=== PATIENT | female | born 1960 | race Hispanic/Latino ===

== ENCOUNTER 2018-05-09 22:22 | Inpatient (IN) | payer OTHER ==
[2018-05-09 22:59] LABS: #Basophils 0.2 thou/uL (0.0-0.2); #Eosinphils 0.2 thou/uL (0.0-0.7); #Lymphocytes 4.5 thou/uL (1.20-3.40); #Monocytes 0.6 thou/uL (0.11-0.59); %Eosinophils 1.9 % (0.0-10.0); %Lymphocytes 42.4 % (21.0-51.0); %Monocytes 5.9 % (0.0-10.0); %Neutrophils 47.8 % (42.0-75.0); Hemoglobin 12.8 g/dL (12.0-16.0); Mean Corpuscular Hemoglobin 28.4 pg (27.0-31.0); Mean Corpuscular Volume 86.1 fL (78.0-98.0); Mean Platelet Volume 7.6 fL (7.4-10.4); Platelet Count 365 thou/uL (130-400); RBC Distribution Width 11.9 % (11.5-14.5); Red Blood Cell (RBC) Count 4.51 mill/uL (4.20-5.40); White Blood Cell (WBC) Count 10.5 thou/uL (4.8-10.8)
--- NOTE | 2018-05-09 23:17 | RAD ---
FRONTAL VIEW CHEST: 05/09/18 COMPARISON: 12/23/16. INDICATION: Pain. FINDINGS: The lungs are clear. No effusion or pneumothorax. The cardiac silhouette is normal in size for portab le technique. There is vascular calcification. IMPRESSION: No focal consolidation. POS: [facility]
[2018-05-09 23:23] LABS: ALT (SGPT) 19 U/L (8-55); AST (SGOT) 21 U/L (5-34); Albumin 4.5 g/dL (3.5-5.0); Alkaline Phosphatase 116 U/L (40-150); Anion Gap 14 mmol/L (10-20); BUN (Urea Nitrogen) 14 mg/dL (9.8-20.1); Bilirubin, Total 0.9 mg/dL (0.2-1.2); Calc. Creatinine Clearance 0 mL/min (70-130); Carbon Dioxide 25 mmol/L (22-29); Chloride 105 mmol/L (98-107); Estimated GFR-MDRD Greater than 90; Globulin 3.8 g/dL (2.4-3.5); Glucose 115 mg/dL (70-105); Potassium 3.3 mmol/L (3.5-5.1); Protein, Total 8.3 g/dL (6.0-8.3); Sodium 141 mmol/L (136-145)
[2018-05-10] MEDS ORDERED: Nitroglycerin 0.4 MG TAB 1 EACH ONE (00:08)
[2018-05-10 03:04] LABS: Troponin I Less than 0.010 ng/mL (< 0.028)
[2018-05-10 03:57] VITALS: BMI 30.6
[2018-05-10] MEDS ORDERED: Acetaminophen 325 MG TAB PO PRN (03:58)
[2018-05-10] MEDS ORDERED: Ondansetron ODT 4 MG TAB PO PRN (04:44)
--- NOTE | 2018-05-10 05:19 | HP ---
CHIEF COMPLAINT: Chest pain. HISTORY OF PRESENT ILLNESS AND REVIEW OF SYSTEMS: Ms. Chua is a pleasant 58-year-old woman, who presents with complaints of chest pain for the last two weeks that have been intermittent. It became severe today at approximately 8:00 p.m. relieved with aspirin. The pain recurred at approximately 09:15 and seems to be located in the center of her chest, radiating across her chest from the left to the right side. She reports having a recent rotator cuff injury to her left shoulder, but states that the pain felt today was different. It was crushing in nature and did not radiate to her neck. She reports experiencing a tingling sensation in her left hand. She became alarmed due to strong family history of coronary artery disease in her father and mother, both, who experience MIs. She also has a history of heart disease in her siblings and one of her sisters did undergo open-heart surgery. In the ED, she underwent an ECG showing nonspecific changes. She had an elevated blood pressure of 190/100. Initial troponin was negative. The patient has been stable. PAST MEDICAL HISTORY: 1. Hypothyroidism. 2. Gallstones. PAST SURGICAL HISTORY: 1. Cholecystectomy. 2. Bladder suspension. 3. Hysterectomy. SOCIAL HISTORY: The patient is fully independent and normally fit and well. She drinks socially and denies any illicit drug use or tobacco use. ALLERGIES: NO KNOWN DRUG ALLERGIES. CURRENT MEDICATIONS: Levothyroxine 75 mcg p.o. daily. PHYSICAL EXAMINATION: GENERAL: The patient appears well developed, well nourished, and is in no acute distress. VITAL SIGNS: Temperature 97.7, heart rate 76, respirations 20, O2 saturation 97% on room air, and BP 120/83. HEENT: Normocephalic and atraumatic. Pupils are equal, round, and reactive to light. Sclerae are without icterus. Oropharynx is clear. NECK: Supple without lymphadenopathy. LUNGS: Clear to auscultation bilaterally without wheezes, rales, or rhonchi. CARDIAC: Regular rate and rhythm. No murmurs, rubs, or gallops. She does have chest wall tenderness to the left side. No soft tissue swelling or redness. ABDOMEN: Soft, nontender, and nondistended. Normoactive bowel sounds present. EXTREMITIES: No clubbing, cyanosis, or edema. NEUROLOGIC: Alert and oriented x3. SKIN: Without rash or jaundice. LABORATORY DATA: White blood count 10.5, hemoglobin 12.8, hematocrit 38.8, and platelets 365. Sodium 141, potassium 3.3, BUN 14, and creatinine 0.65. LFTs unremarkable. Troponin negative. BNP 34.8. IMAGING DATA: Chest x-ray on 05/09/2018, no focal consolidation. No acute abnormalities. IMPRESSION AND PLAN: Ms. Chua is a very pleasant 58-year-old woman presenting with chest pain for the last two weeks that has gotten significantly worse today. She describes a crushing pain on her left side with tingling in her left hand, relieved with aspirin at home. The pain recurred, prompting her to come into the ED as she does have a strong family history of coronary artery disease. Initial troponins negative. ECG with nonspecific findings. She did have initially blood pressure of 190/100 and is now normotensive. The patient will be admitted for chest pain rule out. She is asymptomatic at present. Neck is supple with mild discomfort on palpation of the left anterior chest wall. We will await remaining troponins. We will consult Cardiology and obtain cardiac investigations. She has a cardiac investigations including an echo and stress test. The patient's case was discussed with Dr. Winkler, who agrees with the plan of care as described above. Job ID: [id number]
[2018-05-10 06:32] LABS: #Basophils 0.1 thou/uL (0.0-0.2); #Eosinphils 0.3 thou/uL (0.0-0.7); #Lymphocytes 3.8 thou/uL (1.20-3.40); #Monocytes 0.6 thou/uL (0.11-0.59); #Neutrophils 4.4 thou/uL (1.40-6.50); %Basophils 0.7 % (0.0-1.0); %Eosinophils 3.7 % (0.0-10.0); %Lymphocytes 40.9 % (21.0-51.0); %Monocytes 6.8 % (0.0-10.0); %Neutrophils 47.9 % (42.0-75.0); Hemoglobin 12.6 g/dL (12.0-16.0); Mean Corpuscular HGB CONC 33.5 g/dL (32.0-36.0); Mean Corpuscular Hemoglobin 28.9 pg (27.0-31.0); Mean Corpuscular Volume 86.3 fL (78.0-98.0); Mean Platelet Volume 8.1 fL (7.4-10.4); Platelet Count 329 thou/uL (130-400); RBC Distribution Width 11.8 % (11.5-14.5); Red Blood Cell (RBC) Count 4.34 mill/uL (4.20-5.40); White Blood Cell (WBC) Count 9.3 thou/uL (4.8-10.8)
[2018-05-10 06:52] LABS: ALT (SGPT) 17 U/L (8-55); AST (SGOT) 17 U/L (5-34); Albumin 4.3 g/dL (3.5-5.0); Alkaline Phosphatase 103 U/L (40-150); Anion Gap 13 mmol/L (10-20); BUN (Urea Nitrogen) 12 mg/dL (9.8-20.1); Calc. Creatinine Clearance 110 mL/min (70-130); Calcium 9.7 mg/dL (7.8-10.44); Carbon Dioxide 25 mmol/L (22-29); Chloride 106 mmol/L (98-107); Estimated GFR-MDRD Greater than 90; Globulin 3.5 g/dL (2.4-3.5); Glucose 97 mg/dL (70-105); Potassium 3.5 mmol/L (3.5-5.1); Protein, Total 7.8 g/dL (6.0-8.3); Sodium 140 mmol/L (136-145)
[2018-05-10 06:56] LABS: Troponin I Less than 0.010 ng/mL (< 0.028)
[2018-05-10] MEDS ORDERED: Enoxaparin Sodium 40 MG/0.4 ML SYRINGE SC SCH (09:00)
[2018-05-10] MEDS ORDERED: Aspirin 325 mg Enteric Coated Tablet PO SCH ×2 (09:00→12:00)
[2018-05-10] MEDS ORDERED: Iopamidol 370 76% 100 ML VIAL ONE (09:25)
[2018-05-10] MEDS ORDERED: Iopamidol 370 76% 50 ML VIAL FS ONE (09:25)
[2018-05-10 09:37] LABS: Free T4 (Free Thyroxine) 1.2 ng/dL (0.70-1.48); Thyroid Stimulating Hormone 1.3061 uIU/mL (0.35-4.94)
[2018-05-10] MEDS ORDERED: Communication Order-Pharmacy FS SCH (09:45)
[2018-05-10] MEDS ORDERED: Midazolam HCl 2 mg/2 ml Vial ONE (10:59)
[2018-05-10] MEDS ORDERED: Acetaminophen/Codeine 30-300mg Tablet PO PRN (11:27)
[2018-05-10] MEDS ORDERED: Nitroglycerin 0.4 MG TAB (25 Tab Bottle) SL PRN (11:27)
[2018-05-10] MEDS ORDERED: traMADol HCl 50 MG TAB PO PRN (11:27)
[2018-05-10] MEDS ORDERED: Clopidogrel Bisulfate 300 MG TAB PO SCH (11:30)
[2018-05-10] MEDS ORDERED: Sodium Chloride 0.9% 200 ML IV SCH (11:30)
[2018-05-10] MEDS: Famotidine 20 MG TAB PO SCH ×2 (14:13→20:55)
--- NOTE | 2018-05-10 16:16 | PDOC.PN ---
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 -: Reports some right groin pain at catheter site, no active bleeding noted -: Denies chest pain, SOB, palpations - Objective Vital Signs & Weight: Vital Signs (12 hours) Temp Pulse Resp BP BP Pulse Ox 05/10/18 16:05 98.1 F 91 16 113/57 L 95 05/10/18 11:40 80 14 137/86 137/86 95 05/10/18 07:30 98.2 F 75 16 130/67 96 05/10/18 04:22 145/84 H Weight Weight 71.123 kg I&O: 05/09/18 05/10/18 05/11/18 06:59 06:59 06:59 Intake Total 0 Balance 0 Result Diagrams: 05/10/18 05:52 05/10/18 05:52 Phys Exam - Physical Examination HEENT: PERRLA, moist MMs Neck: no nodes, no JVD Respiratory: no wheezing, clear to auscultation bilateral Cardiovascular: RRR, no significant murmur Gastrointestinal: soft, non-tender Musculoskeletal: no edema, pulses present Pressure bandage noted on right groin. No active bleeding. No edema noted Neurological: non-focal, normal sensation Lymphatic: no nodes Psychiatric: normal affect, A&O x 3 Skin: no rash, normal turgor Dx/Plan (1) Unstable angina Status: Acute (2) Chest pain Code(s): R07.9 - CHEST PAIN, UNSPECIFIED Status: Acute Qualifiers: Chest pain type: unspecified Qualified Code(s): R07.9 - Chest pain, unspecified (3) Dyslipidemia Code(s): E78.5 - HYPERLIPIDEMIA, UNSPECIFIED Status: Chronic (4) Hypothyroidism Code(s): E03.9 - HYPOTHYROIDISM, UNSPECIFIED Status: Chronic Qualifiers: Hypothyroidism type: unspecified Qualified Code(s): E03.9 - Hypothyroidism , unspecified - Plan cont current plan of care, out of bed/ambulate Heart cath today, no stents placed -: Dr. Tran mentioned he would like her to stay at least one more nt -: Will monitor VS, recheck labs, -: Discussed case with Dr. Mace, agrees to plan * . Review of Systems - Review of Systems Musculoskeletal: Leg Pain (right groin pain at insertion site) - Medications/Allergies Allergies/Adverse Reactions: Allergies Allergy/AdvReac Type Severity Reaction Status Date / Time No Known Allergies Allergy Verified 12/24/16 02:14 Medications: Current Medications Acetaminophen/Codeine Phosphate (Tylenol #3) 1 tab PO Q4H PRN PRN Reason: Mild Pain (1-3) Acetaminophen/Codeine Phosphate (Tylenol #3) 2 tab PO Q4H PRN PRN Reason: Moderate Pain (4-6) Aspirin (Ecotrin) 325 mg PO DAILY [facility] Last Admin: 05/10/18 14:13 Dose: 325 mg Famotidine (Pepcid) 20 mg PO BID [facility] Last Admin: 05/10/18 14:13 Dose: 20 mg Sodium Chloride (Normal Saline 0.9%) 200 mls @ 999 mls/hr IV ONE [facility] Stop: 06/09/18 11:31 Isosorbide Mononitrate (Imdur Er) 30 mg PO DAILY [facility] Last Admin: 05/10/18 14:22 Dose: 30 mg Levothyroxine Sodium (Synthroid) 75 mcg PO 0600 [facility] Miscellaneous Information (Communication Order-Pharmacy) 0 each FS ONE [facility] Stop: 05/10/18 21:00 Nitroglycerin (Nitrostat) 0.4 mg SL Q5MIN PRN PRN Reason: Chest Pain Ondansetron HCl (Zofran Odt) 4 mg PO Q6H PRN PRN Reason: Nausea/Vomiting Vascepa Tab 0 each PO BID [facility] Rosuvastatin Calcium (Crestor) 20 mg PO HS [facility] Tramadol HCl (Ultram) 50 mg PO Q6H PRN PRN Reason: Moderate Pain (4-6)
[2018-05-10] MEDS: Rosuvastatin 20 MG TAB PO SCH (20:55)
[2018-05-10] MEDS ORDERED: VASCEPA PO SCH (21:00)
[2018-05-10] MEDS: Acetaminophen/Codeine 30-300mg Tablet PO PRN (21:20)
[2018-05-11 05:00] LABS: #Basophils 0.1 thou/uL (0.0-0.2); #Eosinphils 0.2 thou/uL (0.0-0.7); #Lymphocytes 3.2 thou/uL (1.20-3.40); #Monocytes 0.7 thou/uL (0.11-0.59); #Neutrophils 5.8 thou/uL (1.40-6.50); %Basophils 0.7 % (0.0-1.0); %Lymphocytes 31.7 % (21.0-51.0); %Neutrophils 58.6 % (42.0-75.0); Hemoglobin 11.4 g/dL (12.0-16.0); Mean Corpuscular HGB CONC 32.7 g/dL (32.0-36.0); Mean Corpuscular Hemoglobin 28.5 pg (27.0-31.0); Mean Corpuscular Volume 87.2 fL (78.0-98.0); Mean Platelet Volume 7.7 fL (7.4-10.4); Platelet Count 317 thou/uL (130-400); White Blood Cell (WBC) Count 9.9 thou/uL (4.8-10.8)
[2018-05-11] MEDS: Acetaminophen/Codeine 30-300mg Tablet PO PRN (05:16)
[2018-05-11] MEDS: Levothyroxine Sodium 75 MCG TAB PO SCH (05:17)
[2018-05-11 05:26] LABS: ALT (SGPT) 15 U/L (8-55); AST (SGOT) 16 U/L (5-34); Alkaline Phosphatase 91 U/L (40-150); Anion Gap 11 mmol/L (10-20); BUN (Urea Nitrogen) 17 mg/dL (9.8-20.1); Bilirubin, Total 1.4 mg/dL (0.2-1.2); Calc. Creatinine Clearance 102 mL/min (70-130); Calcium 9.5 mg/dL (7.8-10.44); Carbon Dioxide 25 mmol/L (22-29); Chloride 105 mmol/L (98-107); Estimated GFR-MDRD 90; Globulin 3.1 g/dL (2.4-3.5); Glucose 101 mg/dL (70-105); Protein, Total 7.1 g/dL (6.0-8.3); Sodium 137 mmol/L (136-145)
[2018-05-11] MEDS: Aspirin 81 mg Enteric Coated Tablet PO SCH (09:19)
[2018-05-11] MEDS: Clopidogrel Bisulfate 75 MG TAB PO SCH (09:19)
[2018-05-11] MEDS: Famotidine 20 MG TAB PO SCH ×2 (09:20→21:25)
--- NOTE | 2018-05-11 14:56 | PDOC.PN ---
- Subjective Encounter Start Date: 05/11/18 Encounter Start Time: 12:30 Subjective: Patient examined today, reports no chest pain, palpations, SOB -: Reports Dr. Tran would like to keep one more night - Objective Vital Signs & Weight: Vital Signs (12 hours) Temp Pulse Resp BP Pulse Ox 05/11/18 08:00 96.5 F L 65 17 109/56 L 95 05/11/18 04:05 97.7 F 65 16 119/56 L 95 Weight Weight 71.123 kg I&O: 05/10/18 05/11/18 05/12/18 06:59 06:59 06:59 Intake Total 0 450 Output Total 300 Balance 0 150 Result Diagrams: 05/11/18 04:39 05/11/18 04:38 Phys Exam - Physical Examination HEENT: PERRLA Neck: no nodes, no JVD Respiratory: no wheezing, no rales Cardiovascular: RRR, no significant murmur Gastrointestinal: soft, non-tender Musculoskeletal: no edema, pulses present Neurological: non-focal, normal sensation Lymphatic: no nodes Psychiatric: normal affect, A&O x 3 Skin: no rash, normal turgor Dx/Plan (1) Unstable angina Status: Acute (2) Chest pain Code(s): R07.9 - CHEST PAIN, UNSPECIFIED Status: Acute Qualifiers: Chest pain type: unspecified Qualified Code(s): R07.9 - Chest pain, unspecified (3) Dyslipidemia Code(s): E78.5 - HYPERLIPIDEMIA, UNSPECIFIED Status: Chronic (4) Hypothyroidism Code(s): E03.9 - HYPOTHYROIDISM, UNSPECIFIED Status: Chronic Qualifiers: Hypothyroidism type: unspecified Qualified Code(s): E03.9 - Hypothyroidism , unspecified - Plan Will monitor overnight, trend VS and labs -: Hopefully home tomorrow if patient remains stable * .
[2018-05-11] MEDS: Rosuvastatin 20 MG TAB PO SCH (21:24)
[2018-05-12] MEDS: Levothyroxine Sodium 75 MCG TAB PO SCH (05:51)
[2018-05-12] MEDS: Aspirin 81 mg Enteric Coated Tablet PO SCH (09:28)
[2018-05-12] MEDS: Famotidine 20 MG TAB PO SCH (09:28)
[2018-05-12] MEDS: Clopidogrel Bisulfate 75 MG TAB PO SCH (09:29)
[2018-05-12 12:24] VITALS: BP 110/62; TEMP 98.4
--- NOTE | 2018-05-13 08:11 | DIS ---
DATE OF ADMISSION: 05/10/2018 DATE OF DISCHARGE: 05/12/2018 DISCHARGE DISPOSITION: Home. FOLLOWUP: 1. Follow up with primary care physician, Dr. Lujan in 1 week. 2. Follow up with Dr. Nathaniel Tran in 1 week. ALLERGIES: NO KNOWN DRUG ALLERGIES. THE PATIENT WAS SEEN AND EXAMINED ON THE DAY OF DISCHARGE. DENIES ANY NEW COMPLAINTS. NO CHEST PAIN, SHORTNESS OF BREATH, OR PALPITATIONS REPORTED. DISCHARGE MEDICATIONS: 1. Aspirin 81 mg daily. 2. Plavix 75 mg daily. 3. Imdur ER 30 mg daily. 4. Crestor 20 mg at bedtime. 5. Sublingual nitroglycerin as needed. 6. Levothyroxine 75 mcg daily. INPATIENT PROCEDURES: On May 10, 2018, the patient underwent cardiac catheterization that showed normal left main, single stenosis in the LAD with 90% stenosis in the first diagonal, 40% stenosis in the left circumflex, and 20% stenosis in the RCA. BRIEF HOSPITAL COURSE: The patient is a 58-year-old female with no previous cardiac history, presented to the emergency room with chest discomfort. Please refer to the history and physical for further details. The patient was admitted to the hospital with a diagnosis of unstable angina. The patient was seen by Cardiology, Dr. Nathaniel Tran. She underwent cardiac catheterization as discussed above. She was monitored for 2 nights after cardiac catheterization due to intermittent chest pain and Cardiology recommendation. She has been started on aspirin, Plavix, Imdur, as well as Crestor. Initially, she had some headache after Imdur, that has resolved. Repeat LFTs after 1 to 2 weeks is recommended. Her total bilirubin went up to 1.4 from 1.0. Also note that the patient has been started on statins. Recommendation LFTs after 1 to 2 weeks due to slight elevation of LFTs after starting statins. Lifestyle modification was emphasized. Plan of care was discussed with the patient in detail. She stated understanding. Job ID: [id number]
== END 2018-05-12 12:24 | disposition home or self-care (01) | DRG 287 ==
LOC: ERS 22:22 → 2SW 05-10 01:58 → OBSVTOIN 05-10 17:13 → 2NO 05-10 22:28
PROVIDERS: ADMIT Hospitalist; ATTEND Hospitalist
PROC: 4A023N7 Measurement of Cardiac Sampling and Pressure, Left Heart, Percutaneous Approach (ICD-10-PCS; principal; 2018-05-10)
PROC: B2111ZZ Fluoroscopy of Multiple Coronary Arteries using Low Osmolar Contrast (ICD-10-PCS; 2018-05-10)
DX: I25.110 Atherosclerotic heart disease of native coronary artery with unstable angina pectoris (principal); E03.9 Hypothyroidism, unspecified; R94.5 Abnormal results of liver function studies; E78.5 Hyperlipidemia, unspecified; I10 Essential (primary) hypertension; I36.1 Nonrheumatic tricuspid (valve) insufficiency; I34.0 Nonrheumatic mitral (valve) insufficiency; Z82.49 Family history of ischemic heart disease and other diseases of the circulatory system; Z79.899 Other long term (current) drug therapy; Z90.49 Acquired absence of other specified parts of digestive tract
CPT/HCPCS: 36415; 71045; 80053; 80061; 83880; 84439; 84443; 84481; 84484; 85025; 93005; 93306; 93458; 99152; C1769; J1644; J1650; J2250; Q0162; Q9967

== ENCOUNTER 2018-10-06 01:43 | Observation (INO) | payer OTHER ==
[2018-10-06 02:27] LABS: #Basophils 0.1 thou/uL (0.0-0.2); #Eosinphils 0.2 thou/uL (0.0-0.7); #Lymphocytes 4.8 thou/uL (1.20-3.40); #Monocytes 0.7 thou/uL (0.11-0.59); #Neutrophils 4.8 thou/uL (1.40-6.50); %Basophils 1.1 % (0.0-1.0); %Eosinophils 2.1 % (0.0-10.0); %Lymphocytes 45.3 % (21.0-51.0); %Monocytes 6.1 % (0.0-10.0); %Neutrophils 45.4 % (42.0-75.0); Hemoglobin 13.4 g/dL (12.0-16.0); Mean Corpuscular HGB CONC 33.6 g/dL (32.0-36.0); Mean Corpuscular Hemoglobin 28.3 pg (27.0-31.0); Mean Corpuscular Volume 84.1 fL (78.0-98.0); Mean Platelet Volume 7.7 fL (7.4-10.4); Platelet Count 359 thou/uL (130-400); RBC Distribution Width 12.9 % (11.5-14.5); Red Blood Cell (RBC) Count 4.75 mill/uL (4.20-5.40); White Blood Cell (WBC) Count 10.7 thou/uL (4.8-10.8)
[2018-10-06 02:51] LABS: ALT (SGPT) 23 U/L (8-55); AST (SGOT) 21 U/L (5-34); Albumin 5.1 g/dL (3.5-5.0); Alkaline Phosphatase 119 U/L (40-150); Anion Gap 15 mmol/L (10-20); BUN (Urea Nitrogen) 15 mg/dL (9.8-20.1); Bilirubin, Total 1.2 mg/dL (0.2-1.2); CK (CPK) 99 U/L (29-168); Calc. Creatinine Clearance 0 mL/min (70-130); Calcium 10.8 mg/dL (7.8-10.44); Carbon Dioxide 25 mmol/L (22-29); Chloride 106 mmol/L (98-107); Estimated GFR-MDRD 83; Globulin 3.5 g/dL (2.4-3.5); Glucose 111 mg/dL (70-105); Lipase 27 U/L (8-78); Potassium 3.9 mmol/L (3.5-5.1); Protein, Total 8.6 g/dL (6.0-8.3); Sodium 142 mmol/L (136-145)
[2018-10-06] MEDS ORDERED: Aspirin 325 MG TAB ONE (07:12)
[2018-10-06 07:46] LABS: Troponin I 0.011 ng/mL (< 0.028)
[2018-10-06] MEDS ORDERED: Acetaminophen 325 MG TAB PO PRN ×2 (07:53→07:58)
[2018-10-06] MEDS ORDERED: Ondansetron PF 4 MG/2 ML Vial IVP PRN (07:53)
[2018-10-06] MEDS ORDERED: Ondansetron ODT 4 MG TAB SL PRN (07:53)
[2018-10-06] MEDS ORDERED: Senokot S 8.6-50 MG TAB PO PRN (07:58)
[2018-10-06 08:02] VITALS: BMI 29.2
[2018-10-06] MEDS ORDERED: Sodium Chloride 0.9% 1,000 ML IV SCH (08:15)
[2018-10-06] MEDS ORDERED: Enoxaparin Sodium 40 MG/0.4 ML SYRINGE SC SCH (09:00)
[2018-10-06 10:04] LABS: Troponin I 0.015 ng/mL (< 0.028)
--- NOTE | 2018-10-06 10:25 | RAD ---
CHEST 2 VIEWS: Date: 10/06/18 HISTORY: Pain. COMPARISON: 05/25/15. FINDINGS: Elongation of aorta. Normal cardiac silhouette. Atherosclerosis of aortic knob. Hyperinflation withou t consolidation or mass. No pneumothorax or osseous abnormalities. IMPRESSION: No acute cardiopulmonary process. POS: [facility]
--- NOTE | 2018-10-06 10:36 | HP ---
CHIEF COMPLAINT: Chest pain. HISTORY OF PRESENT ILLNESS: The patient is a 58-year-old female with a history of hypothyroidism and CAD, who presents to the hospital with complaints of chest pain. The patient stated that for the past couple of weeks she has been having worsening fatigue and also some shortness of breath on exertion. The patient also stated that yesterday while she was sitting and relaxing, she started feeling unwell, and when she took her blood pressure, her blood pressure was very high. The initial one was around 200 systolic. At this time, she also started having some chest tightness, and her pain radiated down her left shoulder and her left arm. She also had some nausea, but no vomiting. She denies any recent ill contacts. She did state that she did have some chills, however, has not been feeling unwell. She states that she denies any cough, fever, chills, or diarrhea. The patient states that she has been compliant with her medications. The patient had a catheterization in April of 2018, which did indicate that she does have a single stenosis in the LAD with 90% stenosis in the first diagonal and 40% stenosis in the left circumflex and 20% stenosis in the RCA. PAST MEDICAL HISTORY: 1. She has a history of hypothyroidism. 2. History of CAD without any intervention. PAST SURGICAL HISTORY: She has had a cholecystectomy, bladder suspension, and hysterectomy. 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 Lives with her . Denies any alcohol use, drug use, or smoking history. ALLERGIES: NO KNOWN DRUG ALLERGIES. FAMILY HISTORY: No history of heart disease. MEDICATIONS: She is currently on levothyroxine 75 mcg daily. She also takes Plavix 75 mg daily and aspirin 81 mg daily. She is on isosorbide 30 mg daily. She is on levothyroxine, as I mentioned, 75 mcg daily and rosuvastatin 20 mg daily. REVIEW OF SYSTEMS: All negative except for the ones mentioned above in the HPI. PHYSICAL EXAMINATION: VITAL SIGNS: Are as of the following; temperature of 98.1, heart rate 69, respirations 16, oxygen saturation 98% on room air, and blood pressure 142/79. GENERAL: She is awake, alert, and oriented x3. Does not appear in distress. HEENT: Normocephalic, atraumatic. No lymphadenopathy noted. Pupils are equal and reactive to light. CV: S1 and S2 present. No murmurs, rubs, or gallops. LUNGS: Clear to auscultation. No rhonchi or wheezes noted. ABDOMEN: Soft and nontender. Bowel sounds are present x2. EXTREMITIES: No edema. Pedal pulses are present x2. NEUROVASCULAR: No focal deficits noted. SKIN: No cuts, lesions, or bruises noted. LABORATORY RESULTS: Her troponins x3 were negative. Sodium of 142, potassium of 3.9, BUN of 15, and creatinine of 0.72. Her calcium was 10.8. Her BNP was 25. Her lipase was 27. Hematology; WBCs of 10.7, hemoglobin of 13.4, hematocrit of 39.9, and platelets of 359. IMAGING STUDIES: Only indicated nonspecific ST abnormalities. No ST elevation or depression was noted. ASSESSMENT AND PLAN: The patient is a 58-year-old female with a history of hypothyroidism and known coronary artery disease without any intervention, who presents to the hospital with chest pain. 1. Chest pain. Currently, the patient is asymptomatic. Her troponins x3 were negative. She does have coronary artery disease and had a recent catheterization done in 2019. I will go ahead and consult Cardiology, I do not think she needs a stress test at this point since she just had a cardiac catheterization about 6 months ago. I will keep her n.p.o., start her on some gentle hydration, and continue to monitor. 2. Hypothyroidism. I will continue her home medications. 3. High cholesterol. I will continue her home medications. 4. Deep venous thrombosis prophylaxis. I will put the patient on some sequential compression devices. Job ID: [id number]
--- NOTE | 2018-10-06 15:58 | CON ---
DATE OF CONSULTATION: 10/06/2018 PRIMARY UNDERCOLLAR MAKER: Nathaniel Tran MD HISTORY OF PRESENT ILLNESS: Ms. Chua is a very pleasant 58-year-old female, who comes to the hospital for chest pain. Her blood pressure was in the 200s range since she had chest pain for the last few days. She was admitted and placed on her normal regimen. Cardiology is being consulted. She had a heart catheterization about four months ago that showed no significant coronary artery disease except for diagonal. It is a probably moderate-sized diagonal that has an ostial 90% lesion. This is not amenable to intervention with stenting, so this was left alone and treated medically. She tells me that her blood pressure at home runs in the 120s to 130s most of the time. Currently, she is pain free and she is feeling much better. She wants to go home. PAST MEDICAL HISTORY: 1. Hypothyroidism. 2. CAD as well. SURGICAL HISTORY: 1. Cholecystectomy. 2. Bladder suspension. 3. Hysterectomy. SOCIAL HISTORY: No alcohol, tobacco, or drugs. OUTPATIENT MEDICATIONS: Include, 1. Levothyroxine 25 mcg a day. 2. Plavix 75 mg a day. 3. Aspirin 81 a day. 4. Isosorbide mononitrate 30 mg a day. 5. Rosuvastatin 20 mg a day. ALLERGIES: NO KNOWN DRUG ALLERGIES. FAMILY HISTORY: Noncontributory. REVIEW OF SYSTEMS: A 12-point review of systems was done and was all negative unless stated in the history of present illness. PHYSICAL EXAMINATION: VITAL SIGNS: Temperature 98.1, pulse 69, respiratory rate 16, saturation 98% on room air, and blood pressure 142/79. GENERAL: Awake, alert, and oriented x3. No distress. HEENT: Normocephalic and atraumatic. NECK: Supple. LUNGS: Clear. CARDIOVASCULAR: S1 and S2. No S3 or S4. No murmurs. ABDOMEN: Soft. Positive bowel sounds. EXTREMITIES: No edema. SKIN: Warm and dry. LABORATORY DATA: Laboratory work was reviewed. CBC was reviewed. Chemistry was reviewed. Troponin is negative x3. BNP was 25. ASSESSMENT AND PLAN: 1. Chest pain could be related from angina from that small branch versus just hypertension. We will increase her Imdur to 60 mg a day, hopefully she will tolerate it. If she starts getting lightheaded as blood pressure is dropping, she will cut it back down to 30. 2. Coronary artery disease, stable. No acute coronary syndrome. 3. Should be able to be discharged home stable, increase Imdur to 60 mg q.a.m. 4. She already has a scheduled appointment with Dr. Tran in the next few months, she will keep this. 5. Thank you for letting us to participate in the care of your patient. We will sign off. Please call with any questions. Job ID: [id number]
[2018-10-06 16:17] VITALS: BP 119/59; TEMP 98.6
[2018-10-06] MEDS ORDERED: Rosuvastatin 20 MG TAB PO SCH (21:00)
--- NOTE | 2018-10-07 02:37 | DIS ---
DATE OF ADMISSION: 10/06/2018 DATE OF DISCHARGE: 10/06/2018 DISCHARGE DIAGNOSES: 1. Chest pain. 2. Hypercholesterolemia. 3. Coronary artery disease. HOSPITAL COURSE: The patient is a 58-year-old female who presents to the hospital and complaints of chest pain. The patient's troponin x3 were negative. She was seen by Cardiology who wanted the patient to be medically managed and increase the Imdur to 60 mg daily. She does have a history of CAD. However, no intervention, only medical management. The patient currently in the hospital was feeling well. No complaints of chest pain. She will be discharged home. She will follow up with her substance abuse clinician in 1 to 2 weeks. Also, she had a recent catheterization in April of 2018. Please get off the report for further details. HOME MEDICATIONS: She is going to be on; 1. Isosorbide 60 mg daily. 2. Aspirin 81 mg daily. 3. Clopidogrel 75 daily. 4. Levothyroxine 75 mcg daily. 5. Rosuvastatin 20 mg daily. PHYSICAL EXAMINATION: VITAL SIGNS: Temperature 98.6, heart rate 77, respirations 18, oxygen saturation 96% on room air, blood pressure 119/59. GENERAL: She is awake, alert, and oriented x3. Does not appear in distress. CV: S1 and S2 present. No murmurs, rubs, or gallops. ABDOMEN: Soft and nontender. Bowel sounds are present x2. EXTREMITIES: No edema. Pedal pulses are present x2. Her BNP was 25. Job ID: [id number]
[2018-10-07] MEDS ORDERED: Levothyroxine Sodium 75 MCG TAB PO SCH (06:00)
[2018-10-07] MEDS ORDERED: Clopidogrel Bisulfate 75 MG TAB PO SCH (09:00)
--- NOTE | 2018-10-13 23:42 | EKG ---
Test Reason : Blood Pressure : / mmHG Vent. Rate : 096 BPM Atrial Rate : 096 BPM P-R Int : 176 ms QRS Dur : 102 ms QT Int : 398 ms P-R-T Axes : 029 031 010 degrees QTc Int : 502 ms Normal sinus rhythm Nonspecific ST and T wave abnormality Abnormal ECG Confirmed by JACKELYN HALL ([id number]), video news editor MARGARET FLOR ([id number]) on 10/13/2018 11:42:32 PM Referred By: Confirmed By:JACKELYN HALL
== END 2018-10-06 16:28 | disposition home or self-care (01) ==
LOC: ERS 01:43 → 2SW 07:31
PROVIDERS: ADMIT Internal Medicine; ATTEND Internal Medicine
DX: R07.89 Other chest pain (principal); E78.00 Pure hypercholesterolemia, unspecified; I25.10 Atherosclerotic heart disease of native coronary artery without angina pectoris; E03.9 Hypothyroidism, unspecified; E78.5 Hyperlipidemia, unspecified; I10 Essential (primary) hypertension; Z79.82 Long term (current) use of aspirin; Z79.899 Other long term (current) drug therapy
CPT/HCPCS: 36415; 71046; 80053; 82550; 83690; 83880; 84484; 85025; 93005; 94760; 96360; 96361; G0378; J1650

== ENCOUNTER 2019-02-28 22:05 | Emergency (ER) | payer OTHER, SELFPAY ==
[2019-03-01] MEDS ORDERED: HYDROcodone/Acetaminophen 10/325 mg Tablet ONE (01:14)
--- NOTE | 2019-03-01 08:04 | RAD ---
Exam:3 views left shoulder HISTORY: Pain COMPARISON: 11/23/2014 FINDINGS: Glenohumeral joint space is preserved. No fracture or dislocation. Mild degenerative change of the acromioclavicular joint space. Visualized left ribs are intact IMPRESSION: No fracture or dislocation.
== END 2019-03-01 01:18 | disposition home or self-care (01) ==
LOC: ERS 22:05
DX: M25.512 Pain in left shoulder (principal); E78.00 Pure hypercholesterolemia, unspecified; I10 Essential (primary) hypertension; E03.9 Hypothyroidism, unspecified; I25.10 Atherosclerotic heart disease of native coronary artery without angina pectoris

== ENCOUNTER 2019-08-26 13:39 | Outpatient (CLI) | payer BC ==
--- NOTE | 2019-08-26 14:30 | MRI ---
MRI BRAIN WITHOUT CONTRAST: Indications: Headache Comparison: None FINDINGS: The ventricles have normal size and position. No evidence of restricted diffusion. No evidence of mas s or edema. No significant white matter abnormality. No evidence of hemorrhage seen on gradient echo sequence. Intracranial internal carotid arteries and cerebral arteries exhibit flow voids. Venous sinuses appea r patent. Paranasal sinuses and mastoids appear clear. IMPRESSION: Unremarkable MRI brain. POS: [facility]
== END 2019-08-26 13:40 | disposition home or self-care (01) ==
LOC: BICMRI 13:39
PROVIDERS: ATTEND Family Medicine
DX: R51 Headache (principal)
CPT/HCPCS: 70551

== ENCOUNTER 2020-02-17 11:18 | Emergency (ER) | payer BC ==
[2020-02-17 12:19] LABS: #Eosinphils 0.2 thou/uL (0.0-0.7); #Lymphocytes 4.8 thou/uL (1.20-3.40); #Monocytes 0.8 thou/uL (0.11-0.59); %Basophils 0.4 % (0.0-1.0); %Eosinophils 1.6 % (0.0-10.0); %Lymphocytes 40.7 % (21.0-51.0); %Monocytes 6.5 % (0.0-10.0); %Neutrophils 50.8 % (42.0-75.0); Hemoglobin 13.7 g/dL (12.0-16.0); Mean Corpuscular HGB CONC 34.8 g/dL (32.0-36.0); Mean Corpuscular Hemoglobin 29.5 pg (27.0-31.0); Mean Corpuscular Volume 84.8 fL (78.0-98.0); Mean Platelet Volume 8.2 fL (7.4-10.4); Platelet Count 316 thou/uL (130-400); RBC Distribution Width 12.4 % (11.5-14.5); Red Blood Cell (RBC) Count 4.65 mill/uL (4.20-5.40); White Blood Cell (WBC) Count 11.9 thou/uL (4.8-10.8)
[2020-02-17 12:43] LABS: ALT (SGPT) 15 U/L (8-55); AST (SGOT) 16 U/L (5-34); Albumin 4.6 g/dL (3.5-5.0); Alkaline Phosphatase 116 U/L (40-110); Anion Gap 14 mmol/L (10-20); BUN (Urea Nitrogen) 16 mg/dL (9.8-20.1); Calc. Creatinine Clearance 0 mL/min (70-130); Calcium 9.9 mg/dL (7.8-10.44); Carbon Dioxide 25 mmol/L (22-29); Chloride 105 mmol/L (98-107); Globulin 3.9 g/dL (2.4-3.5); Glucose 100 mg/dL (70-105); Protein, Total 8.5 g/dL (6.0-8.3); Sodium 140 mmol/L (136-145)
[2020-02-17] MEDS ORDERED: Ketorolac Tromethamine 30 MG/ML VIAL ONE (14:20)
[2020-02-17] MEDS ORDERED: Metoclopramide HCl 10 MG/2 ML VIAL ONE (14:20)
--- NOTE | 2020-02-17 14:48 | RAD ---
XR Chest 1 View Portable History: Chest pain Comparison: Radiograph April 2018 Findings: Lungs are clear. No pneumothorax or effusion. Cardiac silhouette and mediastinal contours a re within normal limits. No acute osseous abnormality. Impression: No acute intrathoracic abnormality.
--- NOTE | 2020-02-29 13:41 | EKG ---
Test Reason : CP Blood Pressure : / mmHG Vent. Rate : 084 BPM Atrial Rate : 084 BPM P-R Int : 166 ms QRS Dur : 102 ms QT Int : 384 ms P-R-T Axes : 044 058 003 degrees QTc Int : 453 ms Normal sinus rhythm T wave abnormality, consider inferior ischemia Abnormal ECG Confirmed by JENNIFER JAMIL DO ([id number]), fashion editor GABRIEL PALOMO ([id number]) on 02/29/2020 1:41:12 PM Referred By: Confirmed By:JENNIFER JAMIL DO
== END 2020-02-17 15:10 | disposition home or self-care (01) ==
LOC: ERS 11:18
DX: R51.9 Headache, unspecified (principal); R07.89 Other chest pain; E78.00 Pure hypercholesterolemia, unspecified; I10 Essential (primary) hypertension; I25.10 Atherosclerotic heart disease of native coronary artery without angina pectoris; E03.9 Hypothyroidism, unspecified; Z79.899 Other long term (current) drug therapy
CPT/HCPCS: 36415; 71045; 80053; 84484; 85025; 93005; 96365; 96375; J1885; J2765